=== PATIENT | female | born 1960 ===

== ENCOUNTER 2024-05-13 04:44 | Day surgery (SDC) | payer OTHER ==
[2024-05-07 14:26] VITALS: BMI 24.7
[2024-05-13 11:32] VITALS: TEMP 97.6
[2024-05-13 12:07] VITALS: RESP 18
[2024-05-13 12:09] VITALS: BP 116/85; PULSE 76
== END 2024-05-13 12:19 | disposition home or self-care (01) ==
LOC: JASU-ENDO 04:44
PROVIDERS: ATTEND Internal Medicine Gastroenterology
PROC: 0DBN8ZX Excision of Sigmoid Colon, Via Natural or Artificial Opening Endoscopic, Diagnostic (ICD-10-PCS; 2024-05-13)
PROC: 0DBP8ZX Excision of Rectum, Via Natural or Artificial Opening Endoscopic, Diagnostic (ICD-10-PCS; principal; 2024-05-13 11:00)
DX: Z12.11 Encounter for screening for malignant neoplasm of colon (principal); D12.8 Benign neoplasm of rectum; D12.5 Benign neoplasm of sigmoid colon; K57.30 Diverticulosis of large intestine without perforation or abscess without bleeding; K64.8 Other hemorrhoids
CPT/HCPCS: 88305-TC